=== PATIENT | female | born 2000 | race Caucasian/White ===

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

== ENCOUNTER → 2024-08-10 | Outpatient (CLI) | payer BC ==
[~2024-08-10] MED LIST changes: -LR 1,000 ML IV ONE
[2024-08-10 17:05] LABS: BASO # 0.1 10^3/uL (0.0-0.2); BASO % 0.9 % (0.0-1.0); EOS # 0.1 10^3/uL (0.0-0.5); EOS % 1.8 % (0.0-3.0); HEMATOCRIT 43.5 % (36.0-47.0); HEMOGLOBIN 14.1 g/dl (12.0-15.5); LYMPH # 3.1 10^3/uL (1.5-5.0); MEAN CORPUSCULAR HEMOGLOBIN 29.1 pg (27.0-33.0); MEAN CORPUSCULAR HGB CONC 32.4 g/dl (32.0-36.5); MEAN CORPUSCULAR VOLUME 89.7 fl (80.0-96.0); MONO # 0.5 10^3/uL (0.0-0.8); MONO % 6.8 % (2.0-8.0); NEUTROPHILS % 44.4 % (36.0-66.0); PLATELET COUNT, AUTOMATED 436 10^3/uL (150-450); RED BLOOD COUNT 4.85 10^6/uL (4.00-5.40); WHITE BLOOD COUNT 6.8 10^3/uL (4.0-10.0)
[2024-08-10 17:21] LABS: HEMOGLOBIN A1c 4.8 % (4.0-6.0)
[2024-08-10 17:42] LABS: FREE T4 1.45 NG/DL (0.89-1.76); THYROID STIMULATING HORMONE 0.541 uIU/ML (0.55-4.78)
[2024-08-10 17:43] LABS: ALBUMIN 4.1 G/DL (3.2-5.2); ALKALINE PHOSPHATASE 91 U/L (35-104); ALT/SGPT 23 U/L (7.0-40); AST/SGOT 15 U/L (<34); BILIRUBIN,TOTAL 0.8 MG/DL (0.3-1.2); BLOOD UREA NITROGEN 6 MG/DL (9-23); CALCIUM LEVEL 9.4 MG/DL (8.5-10.1); CARBON DIOXIDE LEVEL 26 MMOL/L (20-31); CHLORIDE LEVEL 106 MMOL/L (98-107); CHOLESTEROL LEVEL 186 MG/DL (<200); CHOLESTEROL RISK RATIO 3.55 (<5); CREATININE FOR GFR 0.84 MG/DL (0.55-1.30); GLOMERULAR FILTRATION RATE > 60.0 (>60); GLUCOSE, FASTING 95 MG/DL (60-100); HDL CHOLESTEROL 52.3 MG/DL (>40); LDL CHOLESTEROL 118.9 MG/DL (<100); NON-HDL-C 133.7 MG/DL; SODIUM LEVEL 141 MMOL/L (136-145); TOTAL PROTEIN 7.7 G/DL (5.7-8.2); TRIGLYCERIDES LEVEL 74 MG/DL (<150)
[2024-08-10 17:49] LABS: THYROID PEROXIDASE ANTIBODY 127 U/ML (<60.0)
[2024-08-13 12:07] LABS: INSULIN TOTAL2 17.4 uIU/mL (<=18.4)
== END ==
LOC: M WUC 08:23
PROVIDERS: ATTEND Registered Nurse
DX: E66.9 Obesity, unspecified (principal)

== ENCOUNTER → 2024-08-18 | Outpatient (CLI) | payer BC | LOC: M WUC 13:36 | PROVIDERS: ATTEND Registered Nurse | DX: R94.6 Abnormal results of thyroid function studies (principal); E66.9 Obesity, unspecified ==

== ENCOUNTER → 2024-10-08 | Outpatient (CLI) | payer BC | LOC: M WHC 10:21 | PROVIDERS: ATTEND Registered Nurse | DX: R94.6 Abnormal results of thyroid function studies (principal); E04.1 Nontoxic single thyroid nodule ==

== ENCOUNTER → 2025-03-30 | Outpatient (CLI) | payer BC ==
[2025-03-30 18:24] LABS: ALT/SGPT 18.0 U/L (7.0-40); AST/SGOT 17.0 U/L (<34); CALCIUM LEVEL 9.5 MG/DL (8.5-10.1); CARBON DIOXIDE LEVEL 24.0 MMOL/L (20-31); CHLORIDE LEVEL 106.0 MMOL/L (98-107); CHOLESTEROL LEVEL 194.0 MG/DL (<200); CHOLESTEROL RISK RATIO 3.22 (<5); CREATININE FOR GFR 0.94 MG/DL (0.55-1.30); GLOMERULAR FILTRATION RATE 86.9 (>60); LDL CHOLESTEROL 104.0 MG/DL (<100); NON-HDL-C 133.8 MG/DL; POTASSIUM SERUM 3.8 MMOL/L (3.5-5.1); SODIUM LEVEL 142.0 MMOL/L (136-145); TRIGLYCERIDES LEVEL 149.0 MG/DL (<150)
== END ==
LOC: M WUC 14:18
PROVIDERS: ATTEND Nurse Practitioner Family
DX: L68.0 Hirsutism (principal)